=== PATIENT | female | born 1990 | race Native Hawaiian/Other Pacific Islander ===

== ENCOUNTER 2019-07-19 18:30 | Emergency (ER) | payer OTHER ==
[~2019-07-19] VITALS: Ht 167.6 cm; Wt 68.9 kg
[2019-07-19 21:01] LABS: PLATELET COUNT 305 K/uL (152-353)
[2019-07-19 21:14] LABS: POTASSIUM 3.7 mmol/L (3.6-5.2)
[2019-07-20 15:10] VITALS: BP 115/68; TEMP 97.8
== END 2019-07-20 15:10 | disposition other institution (70) ==
LOC: ED 18:30
PROVIDERS: Student in an Organized Health Care Education/Training Program
DX: F41.8 Other specified anxiety disorders (principal)
CPT/HCPCS: 36415; 80053; 80307; 80320; 80329; 81000; 81025; 84443; 85027; 93005; 99285

== ENCOUNTER 2019-11-03 18:11 | Inpatient (IN) | payer OTHER ==
[~2019-11-03] VITALS: Ht 172.7 cm; Wt 72.6 kg
[2019-11-03 18:27] VITALS: BP 116/75; TEMP 97.3
[2019-11-03 18:42] LABS: PLATELET COUNT 265 K/uL (152-353)
[2019-11-03 18:48] LABS: POTASSIUM 4.4 mmol/L (3.6-5.2); SODIUM 138 mmol/L (136-145)
[2019-11-03 21:26] VITALS: BP 156/83; TEMP 97.3; Ht 172.7 cm; Wt 72.6 kg
[2019-11-03 22:00] VITALS: BP 135/69
[2019-11-03 23:00] VITALS: BP 121/56
[2019-11-04] VITALS (28 sets, daily range): BP systolic 105–146; BP diastolic 49–90; TEMP 98.1–99.1
[2019-11-04 08:04] LABS: PLATELET COUNT 222 K/uL (152-353)
[2019-11-04] MEDS ORDERED: HYDR50CA21 PO (16:23)
[2019-11-04] MEDS ORDERED: BUPR150T PO (16:32)
[2019-11-04] MEDS ORDERED: QUET300T (16:57)
[2019-11-04 23:09] LABS: POTASSIUM 4.6 mmol/L (3.6-5.2); SODIUM 136 mmol/L (136-145)
[2019-11-04 23:45] LABS: PLATELET COUNT 256 K/uL (152-353)
[2019-11-05] VITALS: BP 122/68; TEMP 99
[2019-11-05 01:00] VITALS: BP 122/68
[2019-11-05 02:00] VITALS: BP 124/73
[2019-11-05 03:00] VITALS: BP 114/64
[2019-11-05 03:30] VITALS: BP 116/72
[2019-11-05 04:00] VITALS: BP 116/72
== END 2019-11-05 04:05 | disposition short-term general hospital (02) | DRG 871 ==
LOC: ED 18:11 → ICU 19:40
PROVIDERS: Emergency Medicine; Family Medicine; ADMIT Internal Medicine
PROC: 5A1935Z Respiratory Ventilation, Less than 24 Consecutive Hours (ICD-10-PCS; principal; 2019-11-04)
PROC: 0BH17EZ Insertion of Endotracheal Airway into Trachea, Via Natural or Artificial Opening (ICD-10-PCS; 2019-11-04)
PROC: 5A02115 Assistance with Cardiac Output using Pulsatile Compression, Intermittent (ICD-10-PCS; 2019-11-04)
DX: A41.89 Other specified sepsis (principal); J69.0 Pneumonitis due to inhalation of food and vomit; T43.622A Poisoning by amphetamines, intentional self-harm, initial encounter; T40.5X2A Poisoning by cocaine, intentional self-harm, initial encounter; T51.0X2A Toxic effect of ethanol, intentional self-harm, initial encounter; F19.129 Other psychoactive substance abuse with intoxication, unspecified; E86.0 Dehydration; R00.0 Tachycardia, unspecified; G40.501 Epileptic seizures related to external causes, not intractable, with status epilepticus; Y92.89 Other specified places as the place of occurrence of the external cause
CPT/HCPCS: 31500; 36415; 36600; 51702; 80053; 80307; 80320; 80329; 81000; 81025; 82550; 82553; 82805; 83605; 83735; 83880; 84484; 85027; 87040; 87088; 92950; 93005; 94002; 94003; 96360; 96361; 96365; 96375; 99285; C1726; J0330; J0696; J1200; J1630; J1650; J2060; J2250; J2310; J2543; J3486; J3490; J7120; Q2009

== ENCOUNTER 2019-11-05 04:10 | Outpatient (CLI) | payer OTHER ==
[~2019-11-05 04:10] MED LIST: BUPR150T PO; HYDR50CA21 PO; QUET300T
== END 2019-11-05 05:24 | disposition short-term general hospital (02) ==
LOC: AMB 04:10
DX: T43.622A Poisoning by amphetamines, intentional self-harm, initial encounter (principal); T51.0X2A Toxic effect of ethanol, intentional self-harm, initial encounter; R40.2440 Other coma, without documented Glasgow coma scale score, or with partial score reported, unspecified time; E86.0 Dehydration; R00.0 Tachycardia, unspecified; G40.501 Epileptic seizures related to external causes, not intractable, with status epilepticus; Y92.89 Other specified places as the place of occurrence of the external cause
CPT/HCPCS: A0425; A0427

== ENCOUNTER 2020-03-16 13:27 | Outpatient (CLI) | payer OTHER ==
[2020-03-16 13:48] LABS: PLATELET COUNT 279 K/uL (152-353)
[2020-03-16 14:09] LABS: POTASSIUM 4.1 mmol/L (3.6-5.2); SODIUM 135 mmol/L (136-145)
== END 2020-03-16 22:37 | disposition home or self-care (01) ==
LOC: LABW 13:27
PROVIDERS: General Practice
DX: F31.89 Other bipolar disorder (principal); T42.6X1A Poisoning by other antiepileptic and sedative-hypnotic drugs, accidental (unintentional), initial encounter
CPT/HCPCS: 36415; 80053; 80102; 80307; 84702; 85027

== ENCOUNTER 2020-08-02 16:31 | Emergency (ER) | payer OTHER ==
[~2020-08-02] VITALS: Ht 167.6 cm; Wt 98.7 kg
[2020-08-02 18:35] LABS: PLATELET COUNT 319 K/uL (152-353)
[2020-08-02 18:38] LABS: POTASSIUM 3.6 mmol/L (3.6-5.2)
[2020-08-02 22:45] VITALS: BP 140/90; TEMP 98.5
== END 2020-08-02 22:45 | disposition short-term general hospital (02) ==
LOC: ED 16:31
PROVIDERS: Emergency Medicine
DX: K82.A2 Perforation of gallbladder in cholecystitis (principal)
CPT/HCPCS: 36415; 80053; 81000; 81025; 82150; 83690; 85027; 96374; 99285; J1885; Q9963

== ENCOUNTER 2021-06-21 01:46 | Emergency (ER) | payer OTHER ==
[~2021-06-21] VITALS: Ht 167.6 cm; Wt 104.3 kg
[2021-06-21 04:02] VITALS: BP 160/100; TEMP 99.8
== END 2021-06-21 04:02 | disposition home or self-care (01) ==
LOC: ED 01:46
DX: J03.90 Acute tonsillitis, unspecified (principal); F17.210 Nicotine dependence, cigarettes, uncomplicated
CPT/HCPCS: 87651; 96372; 99282; J0696; J1020

== ENCOUNTER 2021-09-01 22:40 | Emergency (ER) | payer OTHER ==
[~2021-09-01] VITALS: Ht 167.6 cm; Wt 104.3 kg
[2021-09-01 22:40] VITALS: TEMP 98.1
[2021-09-01 23:59] LABS: PLATELET COUNT 322 K/uL (152-353)
[2021-09-02 00:09] LABS: PARTIAL THROMBOPLASTIN TIME 24.7 SECONDS (24.5-33.6)
[2021-09-02 00:10] LABS: POTASSIUM 3.9 mmol/L (3.6-5.2); SODIUM 139 mmol/L (136-145)
[2021-09-02 09:20] VITALS: BP 132/78
== END 2021-09-02 09:20 | disposition home or self-care (01) ==
LOC: ED 22:40
PROVIDERS: Family Medicine
DX: T50.912A Poisoning by multiple unspecified drugs, medicaments and biological substances, intentional self-harm, initial encounter (principal); F10.10 Alcohol abuse, uncomplicated; Y90.5 Blood alcohol level of 100-119 mg/100 ml; X58.XXXA Exposure to other specified factors, initial encounter; Y92.89 Other specified places as the place of occurrence of the external cause
CPT/HCPCS: 36415; 80053; 80307; 80320; 80329; 81000; 82550; 84484; 85027; 85610; 85730; 93005; 96360; 96375; 99284; J2405

== ENCOUNTER 2022-03-17 15:03 | Emergency (ER) | payer OTHER ==
[~2022-03-17] VITALS: Ht 167.6 cm; Wt 104.3 kg
[2022-03-17 15:03] VITALS: BP 90/50; TEMP 97
[2022-03-17 15:25] LABS: PLATELET COUNT 435 K/uL (152-353)
[2022-03-17 15:35] LABS: PARTIAL THROMBOPLASTIN TIME 20.8 SECONDS (24.5-33.6)
[2022-03-17 15:42] LABS: POTASSIUM 6.3 mmol/L (3.6-5.2)
== END 2022-03-17 17:45 | disposition short-term general hospital (02) ==
LOC: ED 15:03
PROVIDERS: Hospitalist
PROC: 0T9B70Z Drainage of Bladder with Drainage Device, Via Natural or Artificial Opening (ICD-10-PCS; principal; 2022-03-17)
PROC: 0D9670Z Drainage of Stomach with Drainage Device, Via Natural or Artificial Opening (ICD-10-PCS; 2022-03-17)
PROC: 0BH17EZ Insertion of Endotracheal Airway into Trachea, Via Natural or Artificial Opening (ICD-10-PCS; 2022-03-17)
DX: N17.8 Other acute kidney failure (principal); A41.9 Sepsis, unspecified organism; R56.9 Unspecified convulsions; I21.4 Non-ST elevation (NSTEMI) myocardial infarction; E87.5 Hyperkalemia; Z11.52 Encounter for screening for COVID-19
CPT/HCPCS: 36600; 43754; 51702; 80053; 80307; 80320; 81000; 81025; 82550; 82805; 83605; 83880; 84484; 85027; 85610; 85730; 87635; 93005; 96360; 96361; 96365; 96367; 96376; 99285; 99291; J0610; J0696; J1953; J2060; J2405; J3490; U0003